=== PATIENT | male | born 1950 | race Caucasian/White ===

== ENCOUNTER 2017-04-04 01:11 | Inpatient (IN) | payer SELFPAY ==
[2017-04-04] VITALS (10 sets, daily range): BP systolic 92–143; BP diastolic 63–75; PULSE 65–80; RESP 16–25; TEMP 98.1–98.8; O2SAT 91–100
[2017-04-04] MEDS ORDERED: LORazepam 2 MG/ML VIAL IV PRN (07:45)
[2017-04-04] MEDS ORDERED: SENNOSIDES 8.6 MG TAB PO PRN (07:45)
[2017-04-04] MEDS ORDERED: CHLORHEXIDINE GLUCONATE 2 % 1 PACK (2 CLOTHS) TOP PRN (07:45)
[2017-04-04] MEDS ORDERED: MAGNESIUM HYDROXIDE SUSP 30 ML CUP PO PRN (07:45)
[2017-04-04] MEDS ORDERED: MISCELLANEOUS NURSING INFORMATION XX SCH (07:45)
[2017-04-04] MEDS ORDERED: MAGNESIUM SULFATE INJ 2 GM in SODIUM CHLORIDE 0.9% INJ 96 ML IV PRN (07:45)
[2017-04-04] MEDS ORDERED: BISACODYL 10 MG SUPP RECTAL PRN (07:45)
[2017-04-04] MEDS ORDERED: POTASSIUM CHLOR 40 MEQ PREMIX 100 ML IV PRN ×2 (07:45)
[2017-04-04] MEDS ORDERED: ACETAMINOPHEN/HYDROcodone 325 MG/5 MG TAB PO PRN (07:45)
[2017-04-04] MEDS ORDERED: RESP: ALBUTEROL 2.5 MG/3 ML NEB (PRN) INH (07:45)
[2017-04-04] MEDS ORDERED: LACTULOSE SYRUP 20 GM/30 ML CUP PO PRN (07:45)
[2017-04-04] MEDS ORDERED: POTASSIUM CHLORIDE 25 MEQ EFFERVESCENT TAB PO PRN (07:45)
[2017-04-04] MEDS ORDERED: POTASSIUM CHLOR 20 MEQ PREMIX 100 ML IV PRN ×2 (07:45)
[2017-04-04] MEDS ORDERED: SODIUM CHLORIDE 0.9% FLUSH 10 ML FLUSH IV FLUSH PRN (07:45)
[2017-04-04] MEDS ORDERED: MORPHINE SULFATE 4 MG/ML INJ IV PRN (07:45)
[2017-04-04] MEDS ORDERED: POTASSIUM PHOSPHATE MONOBASIC 500 MG TAB PO/TUBE PRN (07:45)
[2017-04-04] MEDS ORDERED: SODIUM PHOSPHATE INJ 30 MMOL in SODIUM CHLOR 0.9% 250 ML INJ 240 ML IV PRN (07:45)
[2017-04-04] MEDS ORDERED: DEXTROSE 50% IN WATER 50 ML VIAL(D50) IV PRN (07:45)
[2017-04-04] MEDS ORDERED: POTASSIUM PHOSPHATE MONOBASIC 500 MG TAB PO PRN (07:45)
[2017-04-04] MEDS ORDERED: POTASSIUM PHOSPHATE INJ 30 MMOL in SODIUM CHLOR 0.9% 250 ML INJ 250 ML IV PRN (07:45)
[2017-04-04] MEDS ORDERED: MAGNESIUM SULFATE INJ 4 GM in SODIUM CHLORIDE 0.9% INJ 92 ML IV PRN (07:45)
[2017-04-04] MEDS ORDERED: MAGNESIUM OXIDE 400 MG TAB PO PRN (07:45)
[2017-04-04] MEDS ORDERED: GLUCAGON 1 MG/ML VIAL OTHER PRN (07:45)
[2017-04-04] MEDS ORDERED: ACETAMINOPHEN 325 MG TAB PO PRN (07:45)
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
--- NOTE | 2017-04-04 08:10 | RADRPT ---
EXAM DATE/TIME: 04/04/2017 07:40 [facility] COMPARISON: CHEST SINGLE AP, April 03, 2017, 21:13. INDICATIONS : Short of breath. MEDICAL HISTORY : None. SURGICAL HISTORY : None. ENCOUNTER: Subsequent ACUITY: 2 days PAIN SCORE: Non-responsive. LOCATION: Bilateral chest FINDINGS: Portable AP view of the chest demonstrates a normal-sized cardiac silhouette. No effusion, consolidat ion, or pneumothorax is visualized. The bones and soft tissues demonstrate no acute abnormality. Lung s are underinflated. 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 There are potential loose bodies in the left shoulder joint. CONCLUSION: Mildly underinflated examination. No acute cardiopulmonary abnormality is identified. Dewayne Baker MD on April 04, 2017 at 8:07 Board Certified Radiologist. This report was verified electronically.
[2017-04-04] MEDS: DOCUSATE SODIUM 50 MG/SENNA 8.6 MG TAB PO SCH ×2 (08:18→20:06)
[2017-04-04] MEDS: SODIUM CHLORIDE 0.9% FLUSH 10 ML FLUSH IV FLUSH SCH ×2 (08:18→20:05)
[2017-04-04] MEDS: ARTIFICIAL TEARS OPTH SOLN 15 ML BTL EACH EYE SCH ×3 (08:19→18:48)
--- NOTE | 2017-04-04 08:37 | RADRPT ---
EXAM DATE/TIME: 04/04/2017 08:02 [facility] COMPARISON: No previous studies available for comparison. INDICATIONS : Increased BUN/creatinine. MEDICAL HISTORY : Cocaine use. Altered mental status. SURGICAL HISTORY : Unable to obtain. ENCOUNTER: Initial ACUITY: 1 day PAIN SCORE: Nonresponsive. LOCATION: Bilateral flank MEASUREMENTS: RIGHT KIDNEY: 10.5 x 5.2 x 5.1 cm LEFT KIDNEY: 12.1 x 5.2 x 5.8 cm FINDINGS: RIGHT KIDNEY: Renal cortex is normal in thickness and echotexture. No hydronephrosis, stone, or mass. LEFT KIDNEY: Renal cortex is normal in thickness and echotexture. No hydronephrosis, stone, or mass. BLADDER: Decompressed with a Saini catheter in place. CONCLUSION: Normal ultrasound appearance of the kidneys. There is no hydronephrosis. Dewayne Baker MD on April 04, 2017 at 8:34 Board Certified Radiologist. This report was verified electronically.
[2017-04-04] MEDS ORDERED: PANTOPRAZOLE SODIUM 40 MG VIAL IV SCH (09:00)
[2017-04-04] MEDS ORDERED: MULTIVITAMIN INJ 10 ML, THIAMINE INJ 100 MG, FOLIC ACID INJ 1 MG in SODIUM CHLORID 0.9%... IV SCH (10:00)
--- NOTE | 2017-04-04 10:00 | RADRPT ---
EXAM DATE/TIME: 04/04/2017 09:40 [facility] COMPARISON: No previous studies available for comparison. INDICATIONS : Altered mental status. RADIATION DOSE: 56.35 CTDIvol (mGy) MEDICAL HISTORY : None SURGICAL HISTORY : None. ENCOUNTER: Initial ACUITY: 1 day PAIN SCALE: Non-responsive LOCATION: cranial TECHNIQUE: Multiple contiguous axial images were obtained of the head. Using automated exposure control and adj ustment of the mA and/or kV according to patient size, radiation dose was kept as low as reasonably a chievable to obtain optimal diagnostic quality images. FINDINGS: CEREBRUM: There is mild cerebral atrophy. Ventricles are normal in size. There is mild periventricular white ma tter low-attenuation. No evidence of midline shift, mass lesion, hemorrhage or acute infarction. No extra-axial fluid collections are seen. POSTERIOR FOSSA: The cerebellum and brainstem are intact. The 4th ventricle is midline. The cerebellopontine angle i s unremarkable. EXTRACRANIAL: Visualized sinuses are clear. SKULL: The calvaria is intact. No evidence of skull fracture. CONCLUSION: 1. No acute intracranial abnormality is identified. 2. Nonacute findings include mild cerebral atrophy and mild periventricular white matter change danii cteristic of chronic microvascular ischemia. Dewayne Baker MD on April 04, 2017 at 9:55 Board Certified Radiologist. This report was verified electronically.
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
[2017-04-04 10:52] LABS: MEAN CELL VOLUME 91.9 FL (80.0-100.0); MEAN CORPUSCULAR HEMOGLOBIN 30.3 PG (27.0-34.0); PLATELET COUNT 264 TH/MM3 (150-450); RED BLOOD COUNT 4.13 MIL/MM3 (4.50-5.90); RED CELL DISTRIBUTION WIDTH 16.3 % (11.6-17.2); REVIEW FLAG FINAL; WHITE BLOOD COUNT 7.7 TH/MM3 (4.0-11.0)
[2017-04-04] MEDS ORDERED: INSULIN NovoLIN REGULAR SUPPLEMENTAL SCALE SQ SCH (11:00)
[2017-04-04] MEDS: INSULIN NovoLIN REGULAR SUPPLEMENTAL SCALE SQ SCH ×3 (11:00→20:12)
[2017-04-04 11:04] LABS: APTT (PATIENT) 30.7 SEC (24.3-30.1); PROTHROMBIN TIME - PATIENT 10.8 SEC (9.8-11.6)
[2017-04-04 11:25] LABS: ACETAMINOPHEN 2.8 MCG/ML (10.0-30.0); BETA-HYDROXYBUTYRATE 1.86 MMOL/L (0.00-0.39); HDL CHOLESTEROL 58.1 MG/DL (40.0-60.0)
--- NOTE | 2017-04-04 13:01 | EKG ---
Date Performed: 04/04/2017 Time Performed: 08:40:09 PTAGE: 66 years EKG: Sinus rhythm MINIMAL VOLTAGE CRITERIA FOR LVH, CONSIDER NORMAL VARIANT BORDERLINE ECG NO PREVIOUS TRACING DOCTOR: Paulo Hartmann Interpretating Date/Time 04/04/2017 13:00:13
[2017-04-04] MEDS: NITROGLYCERIN 2% OINT 1 GM PACKET TOPICAL SCH ×3 (13:22→23:51)
[2017-04-04] MEDS: SODIUM CHLOR 0.9% 1000 ML INJ 1,000 ML IV SCH ×2 (13:23→19:33)
[2017-04-04] MEDS ORDERED: ENOXAPARIN SODIUM 80 MG/0.8 ML SYRINGE SQ SCH (14:00)
[2017-04-04 15:32] LABS: ALT (GPT) 73 U/L (12-78); ANION GAP 8 MEQ/L (5-15); AST (GOT) 142 U/L (15-37); BICARBONATE 25.4 MEQ/L (21.0-32.0); BLOOD UREA NITROGEN 21 MG/DL (7-18); CHLORIDE 109 MEQ/L (98-107); GLOMERULAR FILTRATION RATE 92 ML/MIN (>89); MAGNESIUM 2.3 MG/DL (1.5-2.5); POTASSIUM 3.6 MEQ/L (3.5-5.1); SODIUM (NA) 142 MEQ/L (136-145)
[2017-04-04 15:41] LABS: ALKALINE PHOSPHATASE 63 U/L (45-117); FREE T4 1.07 NG/DL (0.76-1.46); TOTAL BILIRUBIN ADULT 0.9 MG/DL (0.2-1.0)
[2017-04-04 18:47] LABS: BLOOD GAS BASE EXCESS -3.4 mmol/L (-2-2); BLOOD GAS CARBOXYHEMOGLOBIN 1.4 % (0-4); BLOOD GAS HCO3 21 mmol/L (22-26); BLOOD GAS METHEMOGLOBIN 1.1 % (0-2); BLOOD GAS O2 HGB SATURATION 97 % (90-100); BLOOD GAS OXYGEN CONTENT 16.8 Vol % (12.0-20.0); BLOOD GAS PCO2 38 mmHg (38-42); BLOOD GAS PO2 167 mmHg (61-120); BLOOD GAS TOTAL HGB 12.1 G/DL (12.0-16.0); CRITICAL VALUE NO; FIO2 50 %; LITER FLOW 6 L/M; OXYGEN DEVICE VENTI; TEMP CORR TO 98.6
[2017-04-04 18:48] LABS: DRAW SITE RT RADIAL; NUMBER OF ARTERIAL PUNCTURES 1; STAT NO; ULNAR PULSE PRESENT
[2017-04-04 20:18] LABS: AMPHETAMINE, URINE NEG (NEG); BARBITURATES, URINE NEG (NEG)
[2017-04-04 20:25] LABS: COCAINE, URINE POS (NEG)
[2017-04-04 20:40] LABS: BLOOD, URINE SMALL (NEG); GLUCOSE,URINE NEG (NEG); KETONE, URINE NEG (NEG); NITRITE,URINE NEG (NEG); URINE COLOR YELLOW (YELLW/STRAW)
[2017-04-04 20:41] LABS: COMMENT (UR) CULT NOT INDICATED; CULTURE IF INDICATED CULT NOT INDICATED
[2017-04-04] MEDS ORDERED: ATORVASTATIN 40 MG TAB PO SCH (21:00)
[2017-04-05] VITALS (7 sets, daily range): BP systolic 107–138; BP diastolic 59–66; PULSE 63–77; RESP 9–29; TEMP 98–98.7; O2SAT 93–97
[2017-04-05] MEDS ORDERED: CHLORHEXIDINE GLUCONATE 2 % 1 PACK (2 CLOTHS) TOP SCH (04:00)
[2017-04-05] MEDS: INSULIN NovoLIN REGULAR SUPPLEMENTAL SCALE SQ SCH ×2 (06:15→11:00)
[2017-04-05] MEDS: NITROGLYCERIN 2% OINT 1 GM PACKET TOPICAL SCH (06:18)
[2017-04-05] MEDS ORDERED: LORazepam 1 MG TAB PO PRN (07:45)
[2017-04-05] MEDS ORDERED: FLUMAZENIL 0.5 MG/5 ML VIAL IV PUSH PRN (07:45)
[2017-04-05] MEDS ORDERED: LORazepam 2 MG TAB PO PRN (07:45)
[2017-04-05] MEDS ORDERED: LORazepam 2 MG/ML VIAL IV PUSH PRN ×4 (07:45)
[2017-04-05] MEDS ORDERED: HALOPERIDOL LACTATE 5 MG/ML AMP IM PRN (07:45)
[2017-04-05] MEDS: ARTIFICIAL TEARS OPTH SOLN 15 ML BTL EACH EYE SCH (08:05)
[2017-04-05] MEDS: SODIUM CHLORIDE 0.9% FLUSH 10 ML FLUSH IV FLUSH SCH (08:06)
[2017-04-05] MEDS: DOCUSATE SODIUM 50 MG/SENNA 8.6 MG TAB PO SCH (08:06)
[2017-04-05] MEDS ORDERED: MULTIVITAMINS/MINERALS THERAPEUTIC TAB PO SCH (09:00)
[2017-04-05] MEDS ORDERED: ENOXAPARIN SODIUM 40 MG/0.4 ML SYRINGE SQ SCH (09:00)
[2017-04-05] MEDS ORDERED: FOLIC ACID 1 MG TAB PO SCH (09:00)
[2017-04-05] MEDS ORDERED: THIAMINE HCL 100 MG TAB PO SCH (09:00)
[2017-04-05] MEDS ORDERED: ASPIRIN 81 MG CHEW TAB CHEW SCH (09:00)
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
[2017-04-05] MEDS ORDERED: ASPI81CH25 CHEW (13:18)
[2017-04-05] MEDS ORDERED: GNP100TA3 PO (13:18)
--- NOTE | 2017-04-05 13:18 | HHI.DCPOC ---
Discharge Care Plan Diagnosis: (1) Acute kidney injury (2) Elevated CPK (3) Elevated troponin Your Health Problems Are: Difficulty with ADL Exercise Tolerance Goals to Promote Your Health * To prevent worsening of your condition and complications * To maintain your health at the optimal level Directions to Meet Your Goals Take your medications as prescribed Follow your dietary instruction Follow activity as directed Keep your appointments as scheduled Take your immunizations and boosters as scheduled If your symptoms worsen call your PCP, if no PCP go to Urgent Care Center or Emergency Room Smoking is Dangerous to Your Health. Avoid second hand smoke Call the 24-hour hour crisis hotline for domestic abuse at Gautam Saeed MD Apr 05, 2017 13:18
[2017-04-05] MEDS ORDERED: K-PHTAB PO (13:28)
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
[2017-04-05] MEDS ORDERED: POTASSIUM PHOSPHATE MONOBASIC 500 MG TAB PO SCH (14:00)
== END 2017-04-05 14:50 | disposition home or self-care (01) | DRG 896 ==
LOC: NEDDLT 06:05 → HCIS 06:18 → HIMW 06:40
PROVIDERS: ADMIT Internal Medicine; ATTEND Internal Medicine
DX: F14.120 Cocaine abuse with intoxication, uncomplicated (principal); G92 Toxic encephalopathy; N17.9 Acute kidney failure, unspecified; I10 Essential (primary) hypertension; D64.9 Anemia, unspecified; D72.829 Elevated white blood cell count, unspecified; R74.8 Abnormal levels of other serum enzymes; F10.10 Alcohol abuse, uncomplicated; Z78.1 Physical restraint status
CPT/HCPCS: 36600; 70450; 71010; 76775; 80053; 80061; 80307; 81001; 82010; 82140; 82550; 82552; 82570; 82805; 82948; 83605; 83690; 83735; 84100; 84300; 84439; 84443; 84484; 85025; 85027; 85384; 85610; 85730; 87205; 87641; 93005; 99281; C9113; J1200; J1650; J2060; J3411; J3486; J7030; J7040

== ENCOUNTER 2017-04-09 18:29 | Emergency (ER) | payer OTHER ==
[~2017-04-09] VITALS: Ht 188 cm; Wt 100.0 kg
[~2017-04-09 18:29] MED LIST: ASPI81CH25 CHEW; GNP100TA3 PO; K-PHTAB PO
[2017-04-09 18:32] VITALS: BP 165/86; PULSE 92; RESP 18; TEMP 100.9; O2SAT 100
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
[2017-04-09 19:24] LABS: AUTOMATED NEUTROPHIL # 5.2 TH/MM3 (1.8-7.7); BASOPHIL % 0.4 % (0.0-2.0); EOSINOPHIL % 0.1 % (0.0-4.0); HEMATOCRIT 36.2 % (39.0-51.0); HEMO FLAGS DIFF FINAL; LYMPH % 8.4 % (9.0-44.0); LYMPHOCYTE # 0.6 TH/MM3 (1.0-4.8); MEAN CELL VOLUME 90.5 FL (80.0-100.0); MEAN CORPUSCULAR HEMOGLOBIN 30.8 PG (27.0-34.0); MEAN CORPUSCULAR HGB CONC 34.1 % (32.0-36.0); MONO % 14.3 % (0.0-8.0); NEUT % 76.8 % (16.0-70.0); PLATELET COUNT 319 TH/MM3 (150-450); RED CELL DISTRIBUTION WIDTH 15.9 % (11.6-17.2); WHITE BLOOD COUNT 6.8 TH/MM3 (4.0-11.0)
[2017-04-09 19:44] LABS: ACETAMINOPHEN LESS THAN 2.0 MCG/ML (10.0-30.0); ALKALINE PHOSPHATASE 69 U/L (45-117); ALT (GPT) 77 U/L (12-78); ANION GAP 14 MEQ/L (5-15); AST (GOT) 63 U/L (15-37); BICARBONATE 21.3 MEQ/L (21.0-32.0); BLOOD UREA NITROGEN 27 MG/DL (7-18); CHLORIDE 103 MEQ/L (98-107); GLOMERULAR FILTRATION RATE 39 ML/MIN (>89); SODIUM (NA) 138 MEQ/L (136-145); TOTAL BILIRUBIN ADULT 0.8 MG/DL (0.2-1.0)
[2017-04-09 19:48] LABS: POTASSIUM 2.9 MEQ/L (3.5-5.1)
[2017-04-09] MEDS ORDERED: POTASSIUM CHLOR 20 MEQ PREMIX 100 ML IV ONE (20:00)
[2017-04-09 21:32] VITALS: BP 155/84; PULSE 66; RESP 16; TEMP 98.6; O2SAT 99
[2017-04-10] VITALS: BP 142/77; PULSE 65; RESP 16; O2SAT 97
[2017-04-10 02:00] VITALS: BP 144/72; PULSE 62; RESP 16; O2SAT 97
[2017-04-10 04:00] VITALS: BP 114/59; PULSE 65; RESP 16; O2SAT 97
[2017-04-10 07:24] VITALS: BP 114/67; PULSE 71; RESP 16; O2SAT 100
[2017-04-10] MEDS ORDERED: IBUPROFEN 800 MG TAB PO ONE (10:00)
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
[2017-04-10 13:54] VITALS: BP 145/76
== END 2017-04-10 14:08 | disposition home or self-care (01) ==
LOC: NEPC 18:29
DX: F19.959 Other psychoactive substance use, unspecified with psychoactive substance-induced psychotic disorder, unspecified (principal); F29 Unspecified psychosis not due to a substance or known physiological condition; F14.90 Cocaine use, unspecified, uncomplicated; Z72.0 Tobacco use
CPT/HCPCS: 80053; 80307; 85025; 96374; 99284; J3480